=== PATIENT | female | born 2000 | race Caucasian/White ===

== ENCOUNTER 2020-01-15 09:42 | Emergency (ER) | payer OTHER ==
[~2020-01-15] VITALS: Ht 167.6 cm; Wt 63.6 kg
[2020-01-15 11:06] LABS: CLARITY,URINE CLOUDY (Clear); COLOR,URINE YELLOW (Yellow); GLUCOSE, URINE NEGATIVE (Neg); KETONES,URINE 15 mg/dl (Neg); LEUKOCYTE ESTERASE ,URINE TRACE (Neg); NITRITES, URINE NEGATIVE (Neg); OCCULT BLOOD,URINE SMALL (Neg); PH,URINE >=9.0 (4.8-8.0); PROTEIN,URINE 100 mg/dl (Neg); URINE HCG NEGATIVE (NEG)
[2020-01-15 11:10] LABS: UA COLLECTION TYPE CLN CATCH MIDSTREAM
[2020-01-15 11:18] LABS: MUCUS STRANDS MANY /LPF (Neg); SQUAMOUS EPITHELIAL CELL,UR MANY /LPF (FEW); TRANSITIONAL EPI CELLS,URINE MODERATE /HPF
[2020-01-15 11:19] LABS: RBC,URINE 0-2 /HPF (0-2)
[2020-01-15 11:20] LABS: BACTERIA,URINE NONE SEEN /HPF (Neg)
[2020-01-15 11:21] LABS: AMORPHOUS URATES 1+
[2020-01-15 11:28] LABS: BASOPHILS % (AUTO) 0.1 % (0-1); EOSINOPHILS % (AUTO) 0 % (0-6); HEMATOCRIT 40.4 % (35.0-45.0); HEMOGLOBIN 13.3 g/dl (12.0-16.0); LYMPHOCYTES # (AUTO) 0.5 X10'3 (1.1-4.8); LYMPHOCYTES % (AUTO) 5.7 % (21-51); MEAN CORPUSCULAR HEMOGLOBIN 29.6 PG (27.0-31.0); MEAN CORPUSCULAR HGB CONC 32.8 g/dL (33.0-36.5); MEAN CORPUSCULAR VOLUME 90.3 FL (78-98); MEAN PLATELET VOLUME 7.5 FL (7.4-10.4); MONOCYTES # (AUTO) 0.3 X10'3 (0-0.9); MONOCYTES % (AUTO) 3.7 % (2-12); NEUTROPHILS # (AUTO) 8.4 X10'3 (1.8-7.7); NEUTROPHILS % (AUTO) 90.5 % (42-75); PLATELET COUNT 304 X10'3 (140-440); RED BLOOD COUNT 4.47 X10'6 (4.20-5.60); RED CELL DISTRIBUTION WIDTH 12.9 % (11.5-14.5); WHITE BLOOD COUNT 9.3 X10'3 (4.5-11.0)
[2020-01-15 11:43] LABS: ALANINE AMINOTRANSFERASE 19 U/L (12-78); ALBUMIN 4.2 G/DL (3.4-5.0); ALBUMIN/GLOBULIN RATIO 1.4 (1.1-1.5); ALKALINE PHOSPHATASE 47 IU/L (20-180); ANION GAP 12 (8-16); ASPARTATE AMINO TRANSFERASE 24 U/L (10-37); BILIRUBIN,TOTAL 1.6 MG/DL (0.1-1.0); BLOOD UREA NITROGEN 6 MG/DL (7-18); CALCIUM 9.2 MG/DL (8.5-10.1); CHLORIDE 107 MMOL/L (99-107); GLUCOSE 95 MG/DL (70-104); LIPASE 138 U/L (73-393); POTASSIUM 3.7 MMOL/L (3.5-5.1); SODIUM 146 MMOL/L (135-145); TOTAL CARBON DIOXIDE 27.3 MMOL/L (24-32); TOTAL PROTEIN 7.2 G/DL (6.4-8.2); eGFR 71 ML/MIN
[2020-01-15] MEDS ORDERED: CefTRIAXone 250MG IM Kit w/LIDOcaine IM ONE (12:25)
[2020-01-15] MEDS ORDERED: azithromycin 250mg tablet PO ONE (12:25)
--- NOTE | 2020-01-15 12:25 | NUR ---
VARMA IN FOR PELVIC.
[2020-01-15 13:01] VITALS: BP 111/57
== END 2020-01-15 13:04 | disposition home or self-care (01) ==
LOC: ER 09:42
DX: R11.0 Nausea (principal); R06.02 Shortness of breath
CPT/HCPCS: 36415; 80053; 81001; 81025; 83690; 85025; 87491; 87591; 93005; 96372; 99284; J0696

== ENCOUNTER 2024-12-19 13:49 | Emergency (ER) | payer SELFPAY ==
[~2024-12-19] VITALS: Ht 167.6 cm; Wt 49.5 kg
--- NOTE | 2024-12-19 14:04 | Physician Documentation ---
History of Present Illness ~ Chief Complaint: Complications Stated Complaint: VAGINAL BLEED MISCARRIAGE Time Seen by MD: 14:24 HPI 24-year-old female four para two presents to the emergency department with vaginal bleeding for the last couple of days with clots. Reports she began spotting two weeks ago. She believes she might be eight weeks . Correlates he has current symptoms of past symptoms of miscarriage. Denies any other recent illness injury or infections. Medication Reconciliation Allergies: Coded Allergies: No Known Allergies (Unverified , 01/15/20) Past Medical History Past Medical History: No Pertinent History Past Surgical History: no surgical history Lives In: Home Review of Systems All Other Systems at this time: Reviewed and Negative Gastrointestinal: Reports: abdominal pain Female Genitalia: Reports: abnormal bleeding Physical Exam Physical Exam Vital Signs: RN Vital Signs have been reviewed: Yes, Temperature: 98.5, Source: Temporal, Heart Rate: 63, Respiratory Rate: 15, BP: 109/56, Pulse Oximetry: 97, Weight: 49.450 General Appearance: alert, WD/WN Neck: normal inspection Respiratory: no respiratory distress Cardiovascular: normal peripheral pulses Gastrointestinal: other (Suprapubic cramping) Extremities: normal inspection Neurologic: oriented x4 Psychiatric: normal mood/affect Skin: normal color, warm/dry Progress Results/Orders Results/Orders Orders - ESTUARDO SILVA PAC Acetaminophen 1,000mg/100ml Iv (Ofirmev (12/19/24 15:00) US OB (12/19/24 14:46) Completed Orders - ESTUARDO SILVA PAC Normal Saline 1000ml (Sodium Chloride 10 (12/19/24 14:45) US OB (12/19/24 14:46) Medications Received in ER Medications (Trade) Dose Ordered Sig/Martin Route PRN Reason Start Time Stop Time Status Last Admin Dose Admin Sodium Chloride 1,000 ml @ 1,000 mls/hr ONCE ONCE IV 12/19/24 14:45 12/19/24 15:44 DC 12/19/24 15:24 1,000 MLS/HR Acetaminophen 100 ml @ 400 mls/hr Q6H IV 12/19/24 15:00 12/20/24 14:59 12/19/24 15:24 400 MLS/HR Vital Signs 12/19/24 12/19/24 12/19/24 12/19/24 13:56 14:35 15:00 15:27 Temp 98.5 98.5 Pulse 63 54 58 Resp 15 16 16 B/P (MAP) 109/56 102/54 (70) 94/58 (70) Pulse Ox 97 100 100 O2 Flow Rate 0 12/19/24 17:22 Temp 98.5 Pulse 53 Resp 15 B/P (MAP) 96/57 (70) Pulse Ox 98 O2 Flow Rate 0 Laboratory Tests Test 12/19/24 13:28 12/19/24 14:33 Urine Specimen Description Cln catch midstream Urine Color Yellow Urine Clarity Clear Urine pH 6.0 Urine Specific Valier 1.025 Urine Protein Negative Urine Glucose (UA) Negative Urine Ketones Negative Urine Occult Blood Large H Urine Nitrite Negative Urine Bilirubin Negative Urine Urobilinogen 0.2 Urine Leukocyte Esterase Negative Urine RBC 20-50 Urine WBC 5-10 H Urine Squamous Epithelial Cells Moderate Urine Transitional Epithelial Cells Few Urine Renal Cells Few Urine Bacteria 2+ Urine Mucus Few Urine Culture Indicated Indicated Volume Urine Centrifuged 10 ml Urine Comment White Blood Count 7.4 Red Blood Count 4.11 L Hemoglobin 12.2 Hematocrit 36.5 Mean Corpuscular Volume 88.7 Mean Corpuscular Hemoglobin 29.7 Mean Corpuscular Hemoglobin Concent 33.5 Red Cell Distribution Width 12.9 Platelet Count 294 Mean Platelet Volume 7.1 L Neutrophils (%) (Auto) 68.5 Lymphocytes (%) (Auto) 24.1 Monocytes (%) (Auto) 5.0 Eosinophils (%) (Auto) 2.1 Basophils (%) (Auto) 0.3 Neutrophils # (Auto) 5.1 Lymphocytes # (Auto) 1.8 Monocytes # (Auto) 0.4 Eosinophils # (Auto) 0.2 Basophils # (Auto) 0.0 CBC Comment Sodium Level 139 Potassium Level 3.9 Chloride Level 104 Carbon Dioxide Level 29.3 Anion Gap 6 L Blood Urea Nitrogen 11 Creatinine 0.91 H Estimated GFR/1.73 m2 75 BUN/Creatinine Ratio 12.1 Glucose Level 93 Calcium Level 8.7 Total Bilirubin 0.7 Aspartate Amino Transf (AST/SGOT) 16 Alanine Aminotransferase (ALT/SGPT) 15 Alkaline Phosphatase 50 Total Protein 6.8 Albumin 3.9 Globulin 2.9 Albumin/Globulin Ratio 1.3 HCG Beta Subunit 5966 Chemistry Comments Medical Decision Making Differential Dx:Considerations: Include: -complete, - incomplete, -inevitable, -missed, Discomfort of , Ectopic , Ectopic preg.-ruptured, demise, UTI Additional Comment Examination history warrants laboratory screening along with ultrasound imaging to evaluate for likely miscarriage, ectopic or other complications. Placing non tachycardic with mild suprapubic cramping for which we will provide IV fluids and IV Tylenol. Ultrasound imaging shows a gestational sac with pull that is very low in the uterus likely indicating miscarriage in process. Patient received IV hydration while in the emergency department with resolved tachycardia. She is resting comfortably other than suprapubic cramping for which I will managed with outpatient Kane. She understands the importance of 72 hour follow up for repeated hCG and consideration of ultrasound imaging if she has passed tissue to evaluate for retained products of conception. Safely discharged in the emergency department. Departure Disposition: HOME / SELF CARE / HOMELESS Impression: Primary Impression: Vaginal bleeding affecting early Condition: Stable Additional Instructions: Today in the emergency department you had labs obtained along with ultrasound imaging. Ultrasound imaging appears to be consistent with early possible miscarriage. Please have hCG and ultrasound repeated in 72 hours. I have provided you pain management in the interim to take as needed. Thank you for visiting emergency department [facility]. Referrals: NO PRIMARY CARE PROVIDER (PCP) Prescriptions Hydrocodone Bit/Acetaminophen 5/325 MG (Kane 5/325 MG) 5 Mg/325 Mg Tablet 1 TAB PO Q6H PRN for pain, #14 TAB Prov: ESTUARDO SILVA 12/19/24 Education Educated: Patient Educated regarding: diagnosis, treatment Additional Comment Medical Screen Exam History: This 24-year-old female presents with suprapubic abdominal cramping and heavy vaginal bleeding with clots, patient concern for possible miscarriage as she believes she is approximately two months . VITALS: Reviewed and as above. GENERAL: Alert, nontoxic appearing, no apparent distress. RESPIRATORY: No increased work of breathing, no respiratory distress, speaking in full clear sentences Patient is seen in triage and placed in available ED room The note accurately reflects work and decisions made by me.SRINI Mckinnon 12/19/24 14:04 Signature Scribe Signature: . Attestation: . SHILPI GARZA Dec 19, 2024 14:04 ESTUARDO SILVA Dec 19, 2024 15:03
[2024-12-19 14:48] LABS: BASOPHILS % (AUTO) 0.3 % (0-1); EOSINOPHILS # (AUTO) 0.2 X10'3 (0-0.9); EOSINOPHILS % (AUTO) 2.1 % (0-6); HEMATOCRIT 36.5 % (35.0-45.0); HEMOGLOBIN 12.2 g/dl (12.0-16.0); LYMPHOCYTES # (AUTO) 1.8 X10'3 (1.1-4.8); LYMPHOCYTES % (AUTO) 24.1 % (21-51); MEAN CORPUSCULAR HEMOGLOBIN 29.7 PG (27.0-31.0); MEAN CORPUSCULAR HGB CONC 33.5 g/dL (33.0-36.5); MEAN CORPUSCULAR VOLUME 88.7 FL (78-98); MEAN PLATELET VOLUME 7.1 FL (7.4-10.4); MONOCYTES # (AUTO) 0.4 X10'3 (0-0.9); NEUTROPHILS # (AUTO) 5.1 X10'3 (1.8-7.7); NEUTROPHILS % (AUTO) 68.5 % (42-75); PLATELET COUNT 294 X10'3 (140-440); RED BLOOD COUNT 4.11 X10'6 (4.20-5.60); RED CELL DISTRIBUTION WIDTH 12.9 % (11.5-14.5); WHITE BLOOD COUNT 7.4 X10'3 (4.5-11.0)
[2024-12-19 15:13] LABS: ALANINE AMINOTRANSFERASE 15 U/L (12-78); ALBUMIN 3.9 G/DL (3.4-5.0); ALBUMIN/GLOBULIN RATIO 1.3 (1.1-1.5); ALKALINE PHOSPHATASE 50 IU/L (46-116); ANION GAP 6 (8-16); ASPARTATE AMINO TRANSFERASE 16 U/L (10-37); BILIRUBIN,TOTAL 0.7 MG/DL (0.1-1.0); BLOOD UREA NITROGEN 11 MG/DL (7-18); BUN/CREATININE RATIO 12.1 (10.0-20.0); CALCIUM 8.7 MG/DL (8.5-10.1); CHLORIDE 104 MMOL/L (99-107); CREATININE 0.91 MG/DL (0.40-0.90); GLUCOSE 93 MG/DL (70-104); POTASSIUM 3.9 MMOL/L (3.5-5.1); SODIUM 139 MMOL/L (135-145); TOTAL CARBON DIOXIDE 29.3 MMOL/L (24-32); TOTAL PROTEIN 6.8 G/DL (6.4-8.2); eCRCL 74 ML/MIN; eGFR 75 ML/MIN
[2024-12-19] MEDS: acetaminophen 1,000mg/100ml IV 100 ML IV SCH (15:24)
[2024-12-19] MEDS: normal saline 1000ml 1,000 ML IV ONE (15:24)
[2024-12-19 15:34] LABS: BETA HCG,QUANTITATIVE 5966 mIU/ml
[2024-12-19 16:58] LABS: BILIRUBIN,URINE NEGATIVE (Neg); CLARITY,URINE CLEAR (Clear); COLOR,URINE YELLOW (Yellow); GLUCOSE, URINE NEGATIVE (Neg); KETONES,URINE NEGATIVE (Neg); LEUKOCYTE ESTERASE ,URINE NEGATIVE (Neg); NITRITES, URINE NEGATIVE (Neg); OCCULT BLOOD,URINE LARGE (Neg); PROTEIN,URINE NEGATIVE (Neg); UROBILINOGEN,URINE 0.2 E.U/dL (0.2-1.0)
[2024-12-19 17:14] LABS: UA COLLECTION TYPE CLN CATCH MIDSTREAM
[2024-12-19 17:16] LABS: BACTERIA,URINE 2+ /HPF (Neg); RBC,URINE 20-50 /HPF (0-2); SQUAMOUS EPITHELIAL CELL,UR MODERATE /LPF (FEW)
[2024-12-19 17:17] LABS: MUCUS STRANDS FEW /LPF (Neg); RENAL CELLS, URINE FEW /HPF; TRANSITIONAL EPI CELLS,URINE FEW /HPF
--- NOTE | 2024-12-19 17:36 | RADIOLOGY REPORT ---
FIRST TRIMESTER OBSTETRICAL ULTRASOUND HISTORY: r/o miscarriage ,vaginal bleeding. LMP 10/31/2024. Beta HCG 5966. COMPARISON: None TECHNIQUE: Transabdominal and endovaginal imaging of the pelvis. FINDINGS: BIOMETRY: MSD: 2.08 cm, corresponding to 6 weeks 4 days Yolk sac: Not identified. Sonographic age: 6 weeks 4 days, corresponding to an SP of 08/10/2025 Clinical age: 7 weeks 0 days, corresponding to an SP of 08/07/2025 HEART ACTIVITY: Not identified UTERUS: The uterus measures approximately 8.8 x 5.5 x 6.7 cm. There is an intrauterine gestational sa c in the lower uterine body with some internal echogenic material that may represent a pole. T here is no heart activity identified. There is a 5 mm long anechoic crescent adjacent to the gestatio nal sac that may represent subchorionic hemorrhage. CERVIX: Long and closed. ADNEXA: Of the right ovary measures 2.1 x 1.1 x 1.8 cm. The left ovary measures 3.5 x 1.7 x 2.0 cm. There is expected flow within both ovaries on color and spectral doppler. OTHER: There is moderate free fluid in the cul-de-sac. IMPRESSION: Intrauterine gestational sac without definite pole identified. Subchorionic hemorrhage noted. R ecommend follow-up ultrasound in 2 weeks unless clinically indicated earlier.
[2024-12-19] MEDS ORDERED: HYDR-3965 PO (17:42)
[2024-12-19 17:56] VITALS: BP 99/53; PULSE 54; RESP 14; TEMP 98.5; O2SAT 99
== END 2024-12-19 18:00 | disposition home or self-care (01) ==
LOC: ER 13:50
DX: O20.9 Hemorrhage in early pregnancy, unspecified (principal); Z3A.01 Less than 8 weeks gestation of pregnancy
CPT/HCPCS: 36415; 76801; 76817; 80053; 81001; 84702; 85025; 86885; 86900; 86901; 87088; 93976; 96365; 99285; J0131; J7030

== ENCOUNTER 2025-04-18 19:46 | Emergency (ER) | payer SELFPAY ==
[~2025-04-18] VITALS: Ht 165.1 cm; Wt 55.5 kg
[2025-04-18 19:54] VITALS: BP 128/76; PULSE 87; O2SAT 98
--- NOTE | 2025-04-18 20:06 | ELECTROCARDIOGRAPH REPORT ---
[facility] Test Date: 2025-04-18 Test Time: 20:04:27 Pat Name: EVERETTE WILLIS Department: [facility]- Patient ID: [facility]-[id number] Room: Gender: F Cold Strip Feeder: : 2000 Requested By: SHILPI GARZA Order Number: [id number] Reading MD: Dr. Raphael Hoang Measurements Intervals [place] Rate: 102 P: 72 SD: 130 QRS: 73 QRSD: 102 T: 15 QT: 332 QTc: 433 Interpretive Statements Sinus tachycardia Consider right atrial enlargement Consider right ventricular hypertrophy Electronically Signed On 04-19-2025 21:39:[address] Raphael Hoang Please click the below link to view image of tracing.
[2025-04-18 21:33] LABS: MEAN PLATELET VOLUME 7.3 FL (7.4-10.4); RED CELL DISTRIBUTION WIDTH 13.1 % (11.5-14.5)
[2025-04-18 21:44] LABS: CREATININE 0.83 MG/DL (0.40-0.90); TOTAL CARBON DIOXIDE 29.0 MMOL/L (24-32); eCRCL 91 ML/MIN; eGFR 84 ML/MIN
--- NOTE | 2025-04-18 22:41 | Physician Documentation ---
History of Present Illness ~ Chief Complaint: Syncope Stated Complaint: HIGH HR Time Seen by MD: 23:21 HPI This is a 24-year-old female who presents after several episodes of near-syncope this week, patient reports last nursing episode was yesterday while hiking. Patient reports she is currently. History as above. No actual syncope. Patient does endorse history of anxiety symptoms last a proximally 10 minutes. Denies any chest pain Medication Reconciliation Allergies: Coded Allergies: No Known Allergies (Unverified , 04/18/25) Past Medical History Past Medical History: No Pertinent History Past Surgical History: no surgical history Lives In: Home Review of Systems ROS As stated above in the HPI, otherwise all systems are reviewed and negative. Physical Exam Vital Signs: Temperature: 97.9, Source: Oral, Heart Rate: 87, Respiratory Rate: 16, BP: 128/76, Pulse Oximetry: 98, Weight: 55.450 Physical Exam General: Patient is awake, alert, oriented x4 in no acute distress and well appearing.~ Head: Normocephalic and atraumatic. Eyes: Conjunctival normal. EOMI. PERRL. ENT: Mucous membranes moist. Neck: Supple, trachea is midline. Chest: Clear to auscultation bilaterally without rales, rhonchi, or wheezes. There is no accessory muscle use or retractions. Cardiac: RRR without murmurs, gallops, or rubs. Extremities: Normal strength. Normal range of motion. No deformities or edema. No calf tenderness to palpation Progress Results/Orders Results/Orders Orders - BRUCE PHILIP MD Urinalysis, Cult If Indicated (04/18/25 23:39) Hcg, Ur Ql (04/18/25 23:39) Completed Orders - BRUCE PHILIP MD Hs Troponin I W Calculations (04/18/25 23:29) Vital Signs 04/18/25 04/18/25 19:54 22:55 Temp 97.9 Pulse 87 Resp 16 18 B/P (MAP) 128/76 Pulse Ox 98 Laboratory Tests Test 04/18/25 21:21 04/18/25 21:22 White Blood Count 9.0 Red Blood Count 3.90 L Hemoglobin 11.7 L Hematocrit 35.0 Mean Corpuscular Volume 89.8 Mean Corpuscular Hemoglobin 29.9 Mean Corpuscular Hemoglobin Concent 33.3 Red Cell Distribution Width 13.1 Platelet Count 320 Mean Platelet Volume 7.3 L Neutrophils (%) (Auto) 57.2 Lymphocytes (%) (Auto) 32.8 Monocytes (%) (Auto) 8.2 Eosinophils (%) (Auto) 1.6 Basophils (%) (Auto) 0.2 Neutrophils # (Auto) 5.2 Lymphocytes # (Auto) 3.0 Monocytes # (Auto) 0.7 Eosinophils # (Auto) 0.1 Basophils # (Auto) 0.0 CBC Comment Sodium Level 141 Potassium Level 3.8 Chloride Level 105 Carbon Dioxide Level 29.0 Anion Gap 7 L Blood Urea Nitrogen 10 Creatinine 0.83 Estimated GFR/1.73 m2 84 BUN/Creatinine Ratio 12.0 Glucose Level 73 Calcium Level 9.0 Albumin 3.6 Chemistry Comments Troponin I High Sensitivity < 4 L Troponin I High Sens Percent Delta Troponin I Hi Sens Absolute Change EKG/XRAY/CT/US/VASC/MRI EKG : Additional Comment EKG interpreted by myself shows time of 2003, rate 102, sinus tachycardia, normal axis, nonspecific ST-T changes. Medical Decision Making Findings Patient presented to the emergency room with a episodes of feeling as if she is going to pass out. No actual syncope. Differentials include but are not limited to cardiac arrhythmia, anxiety attack, pulmonary embolism, dehydration, cardiac arrhythmia. Troponins reassuring EKGs reassuring and labs are reassuring. She is low cardiovascular risk. No calf tenderness and he had not feel patient requires investigation into possible pulmonary embolism. I suspect panic attacks but possibility of cardiac arrhythmia does exist in the need to follow up with her doctor discussed. Departure Disposition: HOME / SELF CARE / HOMELESS Impression: Primary Impression: Pre-syncope Condition: Stable Discharge Instructions: Near-Syncope Additional Instructions: Stay hydrated. Follow up with your doctor tomorrow Referrals: NO PRIMARY CARE PROVIDER (PCP) Signature Scribe Signature: No scribe Attestation: The note accurately reflects work and decisions made by me.Bruce Philip MD 04/18/25 23:33 SHILPI GARZA Apr 18, 2025 22:41 BRUCE PHILIP MD Apr 18, 2025 23:32
[2025-04-18 22:55] VITALS: RESP 18
[2025-04-18 23:55] VITALS: TEMP 97.9
== END 2025-04-18 23:56 | disposition home or self-care (01) ==
LOC: ER 19:47
DX: O26.899 Other specified pregnancy related conditions, unspecified trimester (principal); R55 Syncope and collapse; Z3A.00 Weeks of gestation of pregnancy not specified
CPT/HCPCS: 36415; 80048; 84484; 85025; 93005; 99284

== ENCOUNTER 2025-04-27 08:26 | Emergency (ER) | payer BC ==
[~2025-04-27] VITALS: Ht 167.6 cm; Wt 54.1 kg
--- NOTE | 2025-04-27 08:40 | Physician Documentation ---
History of Present Illness General Chief Complaint: Complications Stated Complaint: COUGH AND PREG COMPLICATIONS Time Seen by MD: 08:35 Mode of Arrival: POV History of Present Illness Initial Comments The patient is a who believes she is eight weeks , patient states she has had a cough for a year with some brownish productive sputum, she states that she additionally had a [place] of vaginal bleeding yesterday in his had spotting since. Patient states she had a miscarriage proximally five months ago. Patient denies any fevers or chills she denies any resting dyspnea. The patient's symptoms are mild to moderate and persistent. Patient states she does use marijuana gummies and she has had nausea and vomiting during the . Medication Reconciliation Allergies: Coded Allergies: No Known Allergies (Unverified , 04/27/25) Past Medical History Past Medical History: No Pertinent History Past Surgical History: no surgical history Lives In: Home Review of Systems All Other Systems at this time: Reviewed and Negative Physical Exam Physical Exam Vital Signs: Temperature: 97.0, Heart Rate: 64, Respiratory Rate: 18, BP: 113/39, Pulse Oximetry: 100, Weight: 54.100 Oxygen Flow Rate: 0 Physical Exam VITALS: Reviewed and as above. GENERAL: Alert, no apparent distress. HEENT: Normocephalic, atraumatic, PERRL, EOMI, dry mucosa, no erythema RESPIRATORY: Lungs clear, normal breath sounds, no respiratory distress. CHEST: No accessory muscle use, no retractions CV: Regular rate, rhythm, no edema, no murmur, No: JVD GI: Soft, non-tender, bowels sounds present, no rebound, guarding, or rigidity BACK: No CVA tenderness, or swelling MUSCULOSKELETAL: No deformities, no edema SKIN: Warm and dry, no rash NEURO: Oriented x4, No motor or sensory deficit PSYCH: Normal mood and affect, no agitation Progress Results/Orders Results/Orders Orders - OHLFSANGEL MD US OB (04/27/25 10:27) Completed Orders - OHLANGEL KENDRICK MD Cbc/Diff (04/27/25 08:35) Bmp Er (04/27/25 08:35) Hcg Serum Qt (04/27/25 08:35) US OB (04/27/25 10:27) Vital Signs 10/10/04/27/25 04/27/25 04/27/25 08:28 08:37 09:51 11:03 Temp 97.0 97.0 97.0 Pulse 64 75 Resp 18 18 16 B/P (MAP) 113/39 100/55 (70) Pulse Ox 100 98 O2 Flow Rate 0 0 Laboratory Tests Test 04/27/25 08:48 White Blood Count 6.0 Red Blood Count 4.05 L Hemoglobin 12.3 Hematocrit 35.9 Mean Corpuscular Volume 88.7 Mean Corpuscular Hemoglobin 30.3 Mean Corpuscular Hemoglobin Concent 34.1 Red Cell Distribution Width 13.3 Platelet Count 302 Mean Platelet Volume 7.1 L Neutrophils (%) (Auto) 65.1 Lymphocytes (%) (Auto) 26.4 Monocytes (%) (Auto) 7.0 Eosinophils (%) (Auto) 1.1 Basophils (%) (Auto) 0.4 Neutrophils # (Auto) 3.9 Lymphocytes # (Auto) 1.6 Monocytes # (Auto) 0.4 Eosinophils # (Auto) 0.1 Basophils # (Auto) 0.0 CBC Comment Sodium Level 137 Potassium Level 4.0 Chloride Level 102 Carbon Dioxide Level 27.9 Anion Gap 7 L Blood Urea Nitrogen 8 Creatinine 0.63 Estimated GFR/1.73 m2 > 90 BUN/Creatinine Ratio 12.7 Glucose Level 93 Calcium Level 8.5 Albumin 3.3 L HCG Beta Subunit 588600 Chemistry Comments Medical Decision Making Findings The patient is a 24-year-old female who states she believes she is eight weeks with vaginal bleeding. The the patient is hemodynamically stable her labs were unremarkable she has had some spotting after a small gush of blood yesterday. The patient's B beta hCG was greater than 518806 and her ultrasound showed a live IUP dated about 11 weeks. This is consistent with her beta hCG. The patient has been going to been instructions for a threatened miscarriage. The the patient is nontoxic her pulse oximetry was interpreted as adequate and normal the patient will be discharged with instructions to follow up as an outpatient and return for worsening of her symptoms prior hospitalizations has been reviewed. Departure Time of Disposition: 10:59 Disposition: 01 HOME / SELF CARE / HOMELESS Impression: Primary Impression: Vaginal bleeding affecting early Discharge Instructions: Threatened Miscarriage Referrals: NO PRIMARY CARE PROVIDER (PCP) Signature Scribe Signature: no scribe Attestation: The note accurately reflects work and decisions made by me.Angel Ray MD 04/28/25 06:15 ANGEL RYA MD Apr 27, 2025 08:40
[2025-04-27 09:01] LABS: MEAN PLATELET VOLUME 7.1 FL (7.4-10.4); RED CELL DISTRIBUTION WIDTH 13.3 % (11.5-14.5)
[2025-04-27 09:29] LABS: CREATININE 0.63 MG/DL (0.40-0.90); TOTAL CARBON DIOXIDE 27.9 MMOL/L (24-32); eCRCL 117 ML/MIN; eGFR > 90 ML/MIN
[2025-04-27 09:51] VITALS: BP 100/55; PULSE 75; RESP 16; O2SAT 98
[2025-04-27 11:03] VITALS: TEMP 97
--- NOTE | 2025-04-27 11:23 | RADIOLOGY REPORT ---
OB ULTRASOUND <14 WEEKS: HISTORY: preg vag bleeding TECHNIQUE: Multiple real-time grayscale sonographic images of the pelvis with duplex Doppler color flow, spectral and M-mode analysis. TRANSDUCERS: Transabdominal COMPARISON: US US OB on DOS: 12/19/24 FINDINGS: The uterus measures 12.8 x 8.8 x 9.5 cm The cervix is not visualized Right ovary measures 4.3 x 2.8 x 2.8 cm with normal Doppler color flow. Left ovary measures 5.3 x 2.7 x 2.3 cm with normal Doppler color flow. IUP single fetus at 11 weeks and 5 days average ultrasound age based on mean crown-rump length of 4.5 cm and gestational sac size of 4.9 cm heart rate detected at 156 beats per minute. Yolk sac is not visualized. Amniotic fluid is subjectively within normal limits Lisa-gestational space: Unremarkable IMPRESSION: IUP single live fetus 11 weeks and 5 days AUA corresponding to an SP of 11/16/2025. No acute abnormality detected.
== END 2025-04-27 11:04 | disposition home or self-care (01) ==
LOC: ER 08:27
DX: O20.9 Hemorrhage in early pregnancy, unspecified (principal); Z3A.01 Less than 8 weeks gestation of pregnancy
CPT/HCPCS: 36415; 76801; 80048; 84702; 85025; 99284